=== PATIENT | female | born 1955 | race Caucasian/White ===

== ENCOUNTER → 2016-10-22 | Outpatient (CLI) | payer BC ==
--- NOTE | 2016-10-22 16:30 | PCVCIMAG ---
APPROVED REPORT Study performed: 10/22/2016 14:04:26 EXAM: Comprehensive 2D, Doppler, and color-flow Echocardiogram Status: routine Other Information Study Quality: Adequate Risk Factors: Cardiac Risk Factors: HTN Indications Atrial Fibrillation Dyspnea 2D Dimensions IVSd: 1.10 (7-11mm) PWd: 0.90 (7-11mm)Ascending Ao: 3.30 (22-36mm) LVDs: 3.50 (25-40mm) Left Atrium: 4.00 (27-40mm) Volumes Left Atrial Volume (Systole) LA ESV Index: 40.00 mL/m2 Aortic Valve AoV Peak Cristhian.: 150.00 m/s AI PHT: 672.00 ms Mitral Valve E/A Ratio: 1.1 MV E Max Cristhian.: 70.00 m/s MV A Cristhian.: 62.00 m/s TDI E/Lateral E': 6.40E/Medial E': 9.40 Pulmonary Valve PV Peak Cristhian.: 110.00 m/s Tricuspid Valve TR Peak Cristhian.: 254.00 m/sRAP Estimate: 7.00 mmHg PA Pressure: 33.00 mmHg Left Ventricle The left ventricle is normal size. There is normal LV segmental wall motion. There is normal left ventricular wall thickness. Left ventricular systolic function is normal. The left ventricular ejection fraction is within the normal range. LVEF is 50-55%. The left ventricular diastolic function is normal. Right Ventricle The right ventricle is normal size. The right ventricular systolic function is normal. Atria Left atrium is mildly dilated. The right atrium size is normal. Aortic Valve The aortic valve is normal in structure. Mild aortic regurgitation. There is no aortic valvular stenosis. Mitral Valve The mitral valve is normal in structure. Mild mitral regurgitation. No evidence of mitral valve stenosis. Tricuspid Valve The tricuspid valve is normal in structure. Mild tricuspid regurgitation with PAP of 33 mmHg. Pulmonic Valve The pulmonary valve is normal in structure. There is no pulmonic valvular regurgitation. Great Vessels The aortic root is normal in size. IVC is normal in size and collapses with >50% inspiration Pericardium There is no pericardial effusion. <Conclusion> The left ventricle is normal size. Left ventricular systolic function is normal. The right ventricle is normal size. Left atrium is mildly dilated. Mild aortic regurgitation. Mild mitral regurgitation. Mild tricuspid regurgitation with PAP of 33 mmHg.
== END | disposition home or self-care (01) ==
LOC: PCVCIMAG 13:52
PROVIDERS: ATTEND Internal Medicine Cardiovascular Disease
DX: I08.3 Combined rheumatic disorders of mitral, aortic and tricuspid valves (principal); I48.0 Paroxysmal atrial fibrillation; I10 Essential (primary) hypertension; E78.00 Pure hypercholesterolemia, unspecified; I12.9 Hypertensive chronic kidney disease with stage 1 through stage 4 chronic kidney disease, or unspecified chronic kidney disease; N18.9 Chronic kidney disease, unspecified; D63.1 Anemia in chronic kidney disease; E78.5 Hyperlipidemia, unspecified; D25.9 Leiomyoma of uterus, unspecified; K21.9 Gastro-esophageal reflux disease without esophagitis; Z79.01 Long term (current) use of anticoagulants; Z79.899 Other long term (current) drug therapy; Z88.1 Allergy status to other antibiotic agents; Z78.0 Asymptomatic menopausal state
CPT/HCPCS: 93005; 93306; G0463

== ENCOUNTER → 2018-07-28 | Outpatient (CLI) | payer BC ==
--- NOTE | 2018-07-28 10:49 | PCVCIMAG ---
APPROVED REPORT Study performed: 07/28/2018 09:37:02 EXAM: Comprehensive 2D, Doppler, and color-flow Echocardiogram Patient Location: Echo lab Room #: 2Status: routine BSA: 2.21 HR: 84 bpmBP: 116/84 mmHg Rhythm: Atrial Fibrillation Other Information Study Quality: Good Risk Factors: Cardiac Risk Factors: HTN, Hyperlipidemia Indications Fatigue Peripheral Edema Hypertension/HDD 2D Dimensions IVSd: 8.51 (7-11mm)LVOT Diam: 20.87 (18-24mm) LVDd: 36.46 mm PWd: 8.11 (7-11mm)Ascending Ao: 33.38 (22-36mm) LVDs: 21.28 (25-40mm) Left Atrium: 32.89 (27-40mm) Aortic Root: 25.74 mm LV Single Plane 4CH: 46.86 % LV Single Plane 2CH: 59.17 % Biplane EF: 54.3 % Volumes Left Atrial Volume (Systole) Single Plane 4CH: 63.73 mLSingle Plane 2CH: 92.13 mL Biplane LA Volume: 78.00 mLLA ESV Index: 35.00 mL/m2 Aortic Valve AoV Peak Cristhian.: 1.17 m/s AO Peak Gr.: 6.35 mmHgLVOT Max P.68 mmHg LVOT Max V: 0.76 m/s DENISE Vmax: 2.22 cm2 AI Vmax: 3.87 m/s AI [place]: 1.75 m/s2 AI PHT: 670.15 ms Mitral Valve MV E Max Cristhian.: 0.70 m/s MV PHT: 46.47 ms MVA (PHT): 4.73 cm2 IVRT: 91.70 ms Pulmonary Valve PV Peak Cristhian.: 0.85 m/sPV Peak Gr.: 2.89 mmHg Tricuspid Valve TR Peak Cristhian.: 2.21 m/s TR Peak Gr.: 19.59 mmHg TV Vmax: 0.63 m/sPA Pressure: 27.00 mmHg Left Ventricle The left ventricle is normal size. There is normal LV segmental wall motion. There is normal left ventricular wall thickness. The left ventricular systolic function is normal. LVEF is 50-55%. This study is not technically sufficient to allow evaluation of the LV diastolic function due to atrial fibrillation. Right Ventricle The right ventricle is normal size. The right ventricular systolic function is normal. Atria Left atrium is mildly dilated. There is no Doppler evidence for an atrial septal defect. The right atrium size is normal. Aortic Valve Aortic valve is trileaflet. The aortic valve is normal in structure and function. No aortic regurgitation is present. There is no aortic valvular stenosis. Mitral Valve The mitral valve is normal in structure. There is no mitral valve regurgitation noted. No evidence of mitral valve stenosis. Tricuspid Valve The tricuspid valve is normal in structure. Trace to mild tricuspid regurgitation with a PA pressure of 27 mmHg. No apparent pulmonary hypertension. Pulmonic Valve The pulmonary valve is normal in structure. There is no pulmonic valvular regurgitation. Great Vessels The aortic root is normal in size. The ascending aorta is normal in size. IVC is normal in size and collapses >50% with inspiration. Pericardium There is no pericardial effusion. There is no pleural effusion. <Conclusion> The left ventricle is normal size. There is normal left ventricular wall thickness. The left ventricular systolic function is normal. The right ventricle is normal size. Left atrium is mildly dilated. The aortic valve is normal in structure and function. The mitral valve is normal in structure. Trace to mild tricuspid regurgitation with a PA pressure of 27 mmHg.
== END | disposition home or self-care (01) ==
LOC: PCVCIMAG 09:12
PROVIDERS: ATTEND Internal Medicine Cardiovascular Disease
DX: I10 Essential (primary) hypertension (principal); R53.83 Other fatigue; R60.0 Localized edema; I48.91 Unspecified atrial fibrillation; R06.02 Shortness of breath; R00.0 Tachycardia, unspecified
CPT/HCPCS: 93306